=== PATIENT | female | born 1955 | race African-American/Black ===

== ENCOUNTER → 2023-05-09 | Outpatient (CLI) | payer OTHER ==
[~2023-05-09] VITALS: Ht 154.9 cm; Wt 81.6 kg
[~2023-05-09] MED LIST: ADENOSINE 69 MG in GIVE UN-DILUTED 0 ML IV ONE; CARB100C; ENAL1TAB42; QUET25TA37; TRAZADONE; TRIA25CA
== END | disposition home or self-care (01) ==
LOC: XYW 09:27
PROVIDERS: ATTEND Internal Medicine
DX: R07.89 Other chest pain (principal); R19.06 Epigastric swelling, mass or lump; I10 Essential (primary) hypertension; Z68.41 Body mass index [BMI] 40.0-44.9, adult
CPT/HCPCS: 78452; 93017; A9500; J0153

== ENCOUNTER 2024-01-27 11:11 | Inpatient (IN) | payer OTHER ==
[~2024-01-27] VITALS: Ht 157.5 cm; Wt 90.0 kg
[~2024-01-27 11:11] MED LIST changes: -ADENOSINE 69 MG in GIVE UN-DILUTED 0 ML IV ONE
[2024-01-27 11:34] VITALS: RESP 20
[2024-01-27 12:07] LABS: Basophils # (auto) 0.1 10 ^3/uL (0-0.2); Basophils % (auto) 1.3 % (0.0-2.0); Eosinophils # (auto) 0.2 10 ^3/uL (0-0.8); Eosinophils % (auto) 3.2 % (0.0-7.0); Hematocrit 39.4 % (36.0-46.0); Hemoglobin 13.2 g/dL (12.2-16.2); Lymphocytes # (auto) 2.3 10 ^3/uL (0.4-5.4); Lymphocytes % (auto) 36.4 % (10.0-50.0); Mean Corpuscular Hgb Conc. 33.5 g/dL (32.0-36.0); Mean Corpuscular Volume 98.5 fL (80.0-100.0); Monocytes # (auto) 0.5 10 ^3/uL (0-1.3); Monocytes % (auto) 8.8 % (0.0-12.0); Neutrophils # (auto) 3.1 10 ^3/uL (1.6-8.6); Neutrophils % (auto) 50.3 % (37.0-80.0); Nucleated Red Blood Cells % 0.1 %; Red Cell Distribution Width 13.9 % (11.8-14.3); White Blood Cell 6.2 10^3/uL (4.4-10.8)
[2024-01-27] MEDS: LORazepam 0.5 MG TAB PO ONE (12:08)
[2024-01-27 12:09] VITALS: BP 137/62; PULSE 79; RESP 18; TEMP 98.1; O2SAT 98
[2024-01-27 12:13] LABS: Chloride 106 mmol/L (98-107); Potassium 3.7 mmol/L (3.5-5.1); Sodium 138 mmol/L (136-145)
[2024-01-27 12:14] LABS: Anion Gap 8 (5-15); Calcium 9.5 mg/dL (8.5-10.1); Carbon Dioxide 24 mmol/L (20-30)
[2024-01-27] MEDS: ASPirin 81 mg TAB PO ONE (12:15)
[2024-01-27 12:19] LABS: BUN/Creatinine Ratio 6.5 (10.0-20.0); Blood Urea Nitrogen 6 mg/dL (9-23); Glucose 99 mg/dL (74-106)
[2024-01-27 12:21] LABS: Urine Bacteria None Seen /hpf (None Seen)
[2024-01-27 12:39] LABS: Urine Blood Negative /uL (Negative); Urine Clarity Clear (Clear); Urine Color Colorless (Yellow); Urine Protein, UAD Negative (Negative); Urine Specific Gravity 1.002 (1.001-1.035); Urine Urobilinogen Normal (Negative); Urine WBC <1 /hpf (0 - 5); Urine pH 6.5 (5.0-9.0)
[2024-01-27] MEDS ORDERED: ACETAMINOPHEN 325 MG TAB PO PRN (14:30)
[2024-01-27] MEDS ORDERED: ONDANSETRON HCL 4 MG/2 ML VIAL IV PRN (14:30)
[2024-01-27] MEDS ORDERED: MORPHINE SULFATE INJ 2 MG/ml SYRG IV PRN ×2 (14:30)
[2024-01-27] MEDS ORDERED: TEMAZEPAM 15 MG CAP PO PRN (14:30)
[2024-01-27] MEDS ORDERED: NITROGLYCERIN 0.4 MG SL TAB SL PRN (14:30)
[2024-01-27] MEDS ORDERED: HYDROcodone-ACET 5/325MG TAB PO PRN (14:30)
[2024-01-27] MEDS ORDERED: ALBUTEROL SULF 2.5 MG/0.5ML(0.5%) NEB SOLN NEB SCH (18:00)
[2024-01-27] MEDS ORDERED: methylPREDNISolone SOD SUCC 125 MG/2 ML VL IV SCH (22:00)
[2024-01-28] MEDS ORDERED: ENOXAPARIN SOD 40 MG/0.4 ML SYRINGE SC SCH (10:00)
== END 2024-01-27 16:33 | disposition left against medical advice (07) | DRG 203 ==
LOC: ER 11:11 → TELE 14:30
PROVIDERS: ADMIT Internal Medicine; ATTEND Internal Medicine
DX: J45.901 Unspecified asthma with (acute) exacerbation (principal); K21.9 Gastro-esophageal reflux disease without esophagitis; R06.03 Acute respiratory distress; I50.9 Heart failure, unspecified; Z53.29 Procedure and treatment not carried out because of patient's decision for other reasons; I11.0 Hypertensive heart disease with heart failure; F51.04 Psychophysiologic insomnia; F31.9 Bipolar disorder, unspecified; Z90.49 Acquired absence of other specified parts of digestive tract
CPT/HCPCS: 36415; 71045; 80048; 81001; 83880; 84484; 85025; 85379; G0378

== ENCOUNTER → 2024-05-13 | Outpatient (CLI) | payer OTHER | END | disposition home or self-care (01) | LOC: XYW 09:53 | PROVIDERS: ATTEND Physician Assistant | DX: M25.562 Pain in left knee (principal) | CPT/HCPCS: 78315; A9503 ==